=== PATIENT | male | born 1940 | race Caucasian/White ===

== ENCOUNTER 2021-03-17 19:35 | Emergency (ER) | payer MEDICARE ==
[2021-03-17 20:22] LABS: HEMOGLOBIN 16.1 gm/dl (14.0-17.5); RED BLOOD COUNT 4.91 M/UL (4.20-5.50); WHITE BLOOD COUNT 16.2 K/UL (4.5-11.0)
[2021-03-17 20:44] LABS: BUN/CREATININE RATIO 18 (0-10)
[2021-03-18] MEDS ORDERED: OMNICEF 300 MG300 MG PO (01:36)
== END 2021-03-18 01:48 | disposition home or self-care (01) ==
LOC: ER1 19:35
PROVIDERS: Family Medicine
DX: S66.912A Strain of unspecified muscle, fascia and tendon at wrist and hand level, left hand, initial encounter (principal); N13.2 Hydronephrosis with renal and ureteral calculous obstruction; F03.90 Unspecified dementia, unspecified severity, without behavioral disturbance, psychotic disturbance, mood disturbance, and anxiety; D72.829 Elevated white blood cell count, unspecified; Z20.822 Contact with and (suspected) exposure to COVID-19; N39.0 Urinary tract infection, site not specified; R74.9 Abnormal serum enzyme level, unspecified; W06.XXXA Fall from bed, initial encounter; Y92.009 Unspecified place in unspecified non-institutional (private) residence as the place of occurrence of the external cause
CPT/HCPCS: 0240U; 71045; 71250; 73110; 73200; 80053; 81001; 82550; 82553; 83605; 83735; 83874; 83880; 84439; 84443; 84484; 85025; 87040; 87086; 96374; 99285; J0696; J7030

== ENCOUNTER 2021-04-15 16:47 | Emergency (ER) | payer MEDICARE, OTHER ==
[~2021-04-15 16:47] MED LIST: OMNICEF 300 MG300 MG PO
[2021-04-15 18:01] LABS: HEMOGLOBIN 16.3 gm/dl (14.0-17.5); RED BLOOD COUNT 5.04 M/UL (4.20-5.50); WHITE BLOOD COUNT 11.9 K/UL (4.5-11.0)
== END 2021-04-16 18:20 | disposition short-term general hospital (02) ==
LOC: ER1 16:47
PROVIDERS: Physician Assistant Medical
DX: N39.0 Urinary tract infection, site not specified (principal); N13.2 Hydronephrosis with renal and ureteral calculous obstruction; N17.9 Acute kidney failure, unspecified; Z20.822 Contact with and (suspected) exposure to COVID-19
CPT/HCPCS: 70450; 71045; 80053; 81001; 82550; 82553; 83605; 83874; 84484; 85025; 87040; 93005; 96374; 96375; 96376; 99285; J0696; J2270; J2405; Q9967; U0002

== ENCOUNTER 2021-12-01 04:27 | Inpatient (IN) | payer MEDICARE, OTHER ==
[~2021-12-01] VITALS: Ht 203 cm; Wt 64.1 kg
[2021-12-01 05:07] LABS: HEMOGLOBIN 14.3 gm/dl (14.0-17.5); RED BLOOD COUNT 5.26 M/UL (4.20-5.50); WHITE BLOOD COUNT 11.9 K/UL (4.5-11.0)
[2021-12-01 05:44] LABS: BUN/CREATININE RATIO 31 (0-10)
[2021-12-01] MEDS ORDERED: TRAZODONE HCL50 MG GT (09:58)
[2021-12-01] MEDS ORDERED: VITAMIN D350 MC3 GT (09:58)
[2021-12-01] MEDS ORDERED: CALCIUM CIT 311 EAC1 GT (09:58)
[2021-12-01] MEDS ORDERED: METOPROLOL TART25 MG GT (09:59)
[2021-12-01] MEDS ORDERED: DONEPEZIL HCL10 MG GT (10:00)
[2021-12-01] MEDS ORDERED: MULTIPLE VITAM1 EAC1 GT (10:00)
[2021-12-01] MEDS ORDERED: ONDANSETRON HCL4 MG GT (10:00)
[2021-12-01] MEDS ORDERED: FAMOTIDINE20 MG GT (10:01)
[2021-12-01] MEDS ORDERED: LEVOTHYROXINE50 MCG GT (10:01)
[2021-12-01] MEDS ORDERED: ROXICODONE5 MG GT (10:02)
[2021-12-01] MEDS ORDERED: SODIUM CHLORIDE3 ML INH (10:02)
[2021-12-01] MEDS ORDERED: SENNA PLUS 8.61 EACH GT (10:02)
[2021-12-01] MEDS ORDERED: TYLENOL EXTRA500 MG GT (10:03)
--- NOTE | 2021-12-01 23:23 | NUR ---
NOTIFIED DR. SHAFER OF CT REPORT REGARDING AORTIC THROMBUS, ECTATIC AORTA, WELL PATIENT'S PAIN AROUND THE UMBILICUS. NO NEW ORDERS. WILL CLOSELY MONITOR PATIENT.
[2021-12-02 06:17] LABS: HEMOGLOBIN 14.8 gm/dl (14.0-17.5); RED BLOOD COUNT 5.3 M/UL (4.20-5.50); WHITE BLOOD COUNT 10.5 K/UL (4.5-11.0)
[2021-12-03 04:46] LABS: HEMOGLOBIN 13.5 gm/dl (14.0-17.5); RED BLOOD COUNT 4.87 M/UL (4.20-5.50); WHITE BLOOD COUNT 9.1 K/UL (4.5-11.0)
[2021-12-03 09:59] LABS: BORDETELLA PARAPERTUSSIS Not Detected (Not Detectd); BORDETELLA PERTUSSIS Not Detected (Not Detectd); CHLAMYDIA PNEUMONIAE Not Detected (Not Detectd); CORONAVIRUS HKU1 Not Detected (Not Detectd); CORONAVIRUS NL63 Not Detected (Not Detectd); CORONAVIRUS OC43 Not Detected (Not Detectd); CORONOAVIRUS 229E Not Detected (Not Detectd); HUMAN METAPNEUMOVIRUS Not Detected (Not Detectd); HUMAN RHINOVIRUS/ENTEROVIRUS Not Detected (Not Detectd); INFLUENZA A Not Detected (Not Detectd); INFLUENZA B Not Detected (Not Detectd); MYCOPLASMA PNEUMONIAE Not Detected (Not Detectd); PARAINFLUENZA VIRUS 1 Not Detected (Not Detectd); PARAINFLUENZA VIRUS 2 Not Detected (Not Detectd); PARAINFLUENZA VIRUS 3 Not Detected (Not Detectd); PARAINFLUENZA VIRUS 4 Not Detected (Not Detectd); RESPIRATORY SYNCYTIAL VIRUS Not Detected (Not Detectd)
[2021-12-03 13:14] LABS: SARS-CoV-2 DETECTED (Not Detectd)
[2021-12-04 07:13] LABS: BUN/CREATININE RATIO 39 (0-10)
[2021-12-04 07:18] LABS: HEMOGLOBIN 13.6 gm/dl (14.0-17.5); RED BLOOD COUNT 4.99 M/UL (4.20-5.50); WHITE BLOOD COUNT 8.6 K/UL (4.5-11.0)
[2021-12-05 06:46] LABS: RED BLOOD COUNT 4.78 M/UL (4.20-5.50)
[2021-12-05 06:54] LABS: BUN/CREATININE RATIO 47 (0-10)
[2021-12-06 05:46] LABS: HEMOGLOBIN 13.3 gm/dl (14.0-17.5); RED BLOOD COUNT 4.78 M/UL (4.20-5.50)
[2021-12-06 06:09] LABS: BUN/CREATININE RATIO 51 (0-10)
[2021-12-07 05:56] LABS: HEMOGLOBIN 12.6 gm/dl (14.0-17.5); RED BLOOD COUNT 4.59 M/UL (4.20-5.50); WHITE BLOOD COUNT 10.3 K/UL (4.5-11.0)
[2021-12-07 06:22] LABS: BUN/CREATININE RATIO 48 (0-10)
== END 2021-12-07 19:50 | DRG 177 ==
LOC: ER1 04:27 → M/S 08:38 → CDU 08:38 → M/S 08:38
PROVIDERS: Physician Assistant; Physician Assistant Medical; Student in an Organized Health Care Education/Training Program; ADMIT Internal Medicine
PROC: 3E03329 Introduction of Other Anti-infective into Peripheral Vein, Percutaneous Approach (ICD-10-PCS; 2021-12-01)
PROC: 3E0H76Z Introduction of Nutritional Substance into Lower GI, Via Natural or Artificial Opening (ICD-10-PCS; 2021-12-02)
PROC: B24BZZZ Ultrasonography of Heart with Aorta (ICD-10-PCS; 2021-12-02)
PROC: XW033E5 Introduction of Remdesivir Anti-infective into Peripheral Vein, Percutaneous Approach, New Technology Group 5 (ICD-10-PCS; principal; 2021-12-03)
PROC: 3E0333Z Introduction of Anti-inflammatory into Peripheral Vein, Percutaneous Approach (ICD-10-PCS; 2021-12-03)
PROC: 8E0ZXY6 Isolation (ICD-10-PCS; 2021-12-07)
DX: U07.1 COVID-19 (principal); J96.01 Acute respiratory failure with hypoxia; I50.33 Acute on chronic diastolic (congestive) heart failure; J15.9 Unspecified bacterial pneumonia; G93.41 Metabolic encephalopathy; E44.0 Moderate protein-calorie malnutrition; Z68.1 Body mass index [BMI] 19.9 or less, adult; E87.0 Hyperosmolality and hypernatremia; I13.0 Hypertensive heart and chronic kidney disease with heart failure and stage 1 through stage 4 chronic kidney disease, or unspecified chronic kidney disease; N18.30 Chronic kidney disease, stage 3 unspecified; I49.3 Ventricular premature depolarization; I49.5 Sick sinus syndrome; I35.8 Other nonrheumatic aortic valve disorders; N26.1 Atrophy of kidney (terminal); D64.9 Anemia, unspecified; R13.10 Dysphagia, unspecified; R29.6 Repeated falls; M81.0 Age-related osteoporosis without current pathological fracture; F32.A Depression, unspecified; K21.9 Gastro-esophageal reflux disease without esophagitis; E03.9 Hypothyroidism, unspecified; F03.90 Unspecified dementia, unspecified severity, without behavioral disturbance, psychotic disturbance, mood disturbance, and anxiety; E88.09 Other disorders of plasma-protein metabolism, not elsewhere classified; R62.7 Adult failure to thrive; Z85.118 Personal history of other malignant neoplasm of bronchus and lung; Z93.1 Gastrostomy status; Z95.0 Presence of cardiac pacemaker; Z87.442 Personal history of urinary calculi; Z88.1 Allergy status to other antibiotic agents
CPT/HCPCS: ECHO; 36415; 71045; 80048; 80053; 81001; 82550; 82553; 83605; 83735; 83880; 84439; 84443; 84484; 85025; 85027; 85379; 87040; 87086; 87633; 92526; 92610; 93005; 93306; 94640; 94664; 94760; 96372; 96374; 96375; 96376; 99285; G0378; J0248; J0696; J1100; J1650; J1940; J7030; Q9967; U0002

== ENCOUNTER → 2022-01-06 | Outpatient (CLI) | payer MEDICARE, OTHER ==
[~2022-01-06] MED LIST changes: +CALCIUM CIT 311 EAC1 GT; +DONEPEZIL HCL10 MG GT; +FAMOTIDINE20 MG GT; +LEVOTHYROXINE50 MCG GT; +METOPROLOL TART25 MG GT; +MULTIPLE VITAM1 EAC1 GT; +ONDANSETRON HCL4 MG GT; +ROXICODONE5 MG GT; +SENNA PLUS 8.61 EACH GT; +SODIUM CHLORIDE3 ML INH; +TRAZODONE HCL50 MG GT; +TYLENOL EXTRA500 MG GT; +VITAMIN D350 MC3 GT
== END ==
LOC: LBRF 03:18
DX: R82.998 Other abnormal findings in urine (principal); R68.89 Other general symptoms and signs; N20.0 Calculus of kidney
CPT/HCPCS: 81001; 87086

== ENCOUNTER 2022-02-08 21:38 | Emergency (ER) | payer MEDICARE, OTHER ==
[2022-02-08 22:01] LABS: HEMOGLOBIN 15.2 gm/dl (14.0-17.5); RED BLOOD COUNT 5.11 M/UL (4.20-5.50)
== END 2022-02-09 03:05 | disposition short-term general hospital (02) ==
LOC: ER1 21:38
PROVIDERS: Family Medicine
DX: K92.2 Gastrointestinal hemorrhage, unspecified (principal); K21.9 Gastro-esophageal reflux disease without esophagitis; Z20.822 Contact with and (suspected) exposure to COVID-19
CPT/HCPCS: 51702; 71045; 80053; 81001; 83605; 83690; 85025; 85610; 87040; 87086; 93005; 94760; 96374; 96375; 99285; C9113; J0696; Q9967; U0002

== ENCOUNTER 2022-02-18 08:47 | Inpatient (IN) | payer MEDICARE, OTHER ==
[~2022-02-18] VITALS: Ht 182.9 cm; Wt 67.4 kg
[~2022-02-18 08:47] MED LIST changes: +HYDROCODON-ACE1 EAC4 GT; +LASIX 40 MG TAB40 MG GT; -METOPROLOL TART25 MG GT; +POTASSIUM CHLO20 ME2 GT; +STOOL SOFTENER100 MG GT; -TRAZODONE HCL50 MG GT; -VITAMIN D350 MC3 GT
[2022-02-18 09:42] LABS: HEMOGLOBIN 12.8 gm/dl (14.0-17.5); RED BLOOD COUNT 4.4 M/UL (4.20-5.50); WHITE BLOOD COUNT 11.4 K/UL (4.5-11.0)
[2022-02-18 09:53] LABS: BUN/CREATININE RATIO 28 (0-10)
[2022-02-18] MEDS ORDERED: TRAZODONE HCL50 MG GT (09:58)
[2022-02-18] MEDS ORDERED: VITAMIN D350 MCG GT (09:58)
[2022-02-18] MEDS ORDERED: METOPROLOL TART25 MG GT (09:59)
[2022-02-18] MEDS ORDERED: IPRAT-ALBUT 0.5-3 ML INH (15:48)
[2022-02-18] MEDS ORDERED: OMNICEF 300 MG300 MG GT (15:49)
[2022-02-18] MEDS ORDERED: LACTULOSE10 GM/151 GT (15:51)
[2022-02-18] MEDS ORDERED: ZINC OXIDE60 GM TOP (19:06)
[2022-02-19 02:29] LABS: HEMOGLOBIN 10.9 gm/dl (14.0-17.5); WHITE BLOOD COUNT 10.9 K/UL (4.5-11.0)
[2022-02-19 02:35] LABS: RED BLOOD COUNT 3.8 M/UL (4.20-5.50)
[2022-02-19 03:02] LABS: BUN/CREATININE RATIO 29 (0-10)
[2022-02-20 04:22] LABS: HEMOGLOBIN 10.7 gm/dl (14.0-17.5); RED BLOOD COUNT 3.74 M/UL (4.20-5.50); WHITE BLOOD COUNT 9.3 K/UL (4.5-11.0)
[2022-02-20 04:52] LABS: BUN/CREATININE RATIO 25 (0-10)
[2022-02-21 03:01] LABS: RED BLOOD COUNT 3.78 M/UL (4.20-5.50); WHITE BLOOD COUNT 11.6 K/UL (4.5-11.0)
[2022-02-21 03:36] LABS: BUN/CREATININE RATIO 27 (0-10)
[2022-02-22 04:37] LABS: BUN/CREATININE RATIO 33 (0-10)
[2022-02-23] MEDS ORDERED: MEROPENEM1 GM IV (09:01)
[2022-02-23] MEDS ORDERED: LASIX 40 MG TAB40 MG PO (09:07)
[2022-02-23] MEDS ORDERED: PULMICORT0.5 MG/2 M INH (09:07)
[2022-02-23] MEDS ORDERED: K-TAB ER20 MEQ PO (09:07)
[2022-02-23] MEDS ORDERED: MIRALAX17 GM PO (11:55)
[2022-02-24 10:02] LABS: HEMOGLOBIN 10.8 gm/dl (14.0-17.5); RED BLOOD COUNT 3.76 M/UL (4.20-5.50); WHITE BLOOD COUNT 11.6 K/UL (4.5-11.0)
[2022-02-24 10:30] LABS: BUN/CREATININE RATIO 32 (0-10)
[2022-02-24] MEDS ORDERED: LACTULOSE20 GM/30 M PO (11:56)
--- NOTE | 2022-02-24 14:25 | NUR ---
report called to Larry at [facility]. EMS already contacted.
--- NOTE | 2022-02-24 17:15 | NUR ---
EMS AT [facility]. REPORT ALREADY CALLED TO ALVARO RAMACHANDRAN AND FAMILY IS AWARE THAT HE IS BEING DISCHARGED.
[2022-02-25] MEDS ORDERED: FUROSEMIDE40 MG GT (17:52)
[2022-02-25] MEDS ORDERED: LACTULOSE10 GM/15 M GT (17:55)
== END 2022-02-24 17:30 | DRG 193 ==
LOC: ER1 08:47 → MED SURG 4 10:19 → CDU 10:19 → PROG CARE 17:46 → MED SURG 4 02-20 08:00
PROVIDERS: Emergency Medicine; Internal Medicine; Physician Assistant; ADMIT Internal Medicine
DX: J18.9 Pneumonia, unspecified organism (principal); J96.21 Acute and chronic respiratory failure with hypoxia; I50.32 Chronic diastolic (congestive) heart failure; E44.0 Moderate protein-calorie malnutrition; J98.11 Atelectasis; F03.90 Unspecified dementia, unspecified severity, without behavioral disturbance, psychotic disturbance, mood disturbance, and anxiety; Z20.822 Contact with and (suspected) exposure to COVID-19; I11.0 Hypertensive heart disease with heart failure; I71.4 Abdominal aortic aneurysm, without rupture; F17.210 Nicotine dependence, cigarettes, uncomplicated; K59.00 Constipation, unspecified; E03.9 Hypothyroidism, unspecified; R13.10 Dysphagia, unspecified; Y95 Nosocomial condition; J43.9 Emphysema, unspecified; I49.5 Sick sinus syndrome; Z93.1 Gastrostomy status; Z79.82 Long term (current) use of aspirin; Z79.899 Other long term (current) drug therapy; Z85.118 Personal history of other malignant neoplasm of bronchus and lung; Z95.0 Presence of cardiac pacemaker; Z87.442 Personal history of urinary calculi; Z98.890 Other specified postprocedural states; Z86.16 Personal history of COVID-19; Z68.20 Body mass index [BMI] 20.0-20.9, adult
CPT/HCPCS: 0240U; 36415; 36600; 71045; 80048; 80053; 80202; 81001; 82550; 82553; 82803; 83605; 83735; 83880; 84484; 85025; 85027; 85379; 87040; 93005; 93970; 94640; 94664; 94760; 96374; 96375; 96376; 99285; J0692; J1650; J2185; J3370; J7070; Q9967

== ENCOUNTER 2022-02-25 11:48 | Inpatient (IN) | payer MEDICARE, OTHER ==
[~2022-02-25] VITALS: Ht 182.9 cm; Wt 66.7 kg
[~2022-02-25 11:48] MED LIST changes: +IPRAT-ALBUT 0.5-3 ML INH; +K-TAB ER20 MEQ PO; +LACTULOSE10 GM/151 GT; +LACTULOSE20 GM/30 M PO; +LASIX 40 MG TAB40 MG PO; +MEROPENEM1 GM IV; +METOPROLOL TART25 MG GT; +MIRALAX17 GM PO; +OMNICEF 300 MG300 MG GT; +PULMICORT0.5 MG/2 M INH; +TRAZODONE HCL50 MG GT; +VITAMIN D350 MCG GT; +ZINC OXIDE60 GM TOP
[2022-02-25 14:03] LABS: WHITE BLOOD COUNT 12.5 K/UL (4.5-11.0)
[2022-02-25 14:04] LABS: HEMOGLOBIN 13.5 gm/dl (14.0-17.5); RED BLOOD COUNT 4.65 M/UL (4.20-5.50)
[2022-02-25 14:50] LABS: BUN/CREATININE RATIO 35 (0-10)
[2022-02-25] MEDS ORDERED: FUROSEMIDE40 MG GT (17:52)
[2022-02-25] MEDS ORDERED: LACTULOSE10 GM/15 M GT (17:55)
[2022-02-26 03:04] LABS: BUN/CREATININE RATIO 34 (0-10)
[2022-02-26 03:05] LABS: WHITE BLOOD COUNT 11.9 K/UL (4.5-11.0)
[2022-02-26 03:44] LABS: HEMOGLOBIN 10.9 gm/dl (14.0-17.5); RED BLOOD COUNT 3.84 M/UL (4.20-5.50)
[2022-02-28 04:16] LABS: HEMOGLOBIN 10.8 gm/dl (14.0-17.5); RED BLOOD COUNT 3.79 M/UL (4.20-5.50); WHITE BLOOD COUNT 9.5 K/UL (4.5-11.0)
[2022-02-28 04:28] LABS: BUN/CREATININE RATIO 35 (0-10)
[2022-02-28] MEDS ORDERED: POLYETHYLENE GL17 GM GT (10:33)
[2022-02-28] MEDS ORDERED: BISACODYL10 MG PR (10:49)
== END 2022-02-28 17:30 | DRG 389 ==
LOC: ER1 11:48 → MED SURG 4 17:00 → CDU 17:00 → MED SURG 4 17:00
PROVIDERS: Physician Assistant; ADMIT Internal Medicine Infectious Disease
DX: K56.41 Fecal impaction (principal); I50.32 Chronic diastolic (congestive) heart failure; J98.11 Atelectasis; Z20.822 Contact with and (suspected) exposure to COVID-19; K62.89 Other specified diseases of anus and rectum; Z66 Do not resuscitate; E86.0 Dehydration; I49.5 Sick sinus syndrome; R13.10 Dysphagia, unspecified; I11.0 Hypertensive heart disease with heart failure; R00.0 Tachycardia, unspecified; F03.90 Unspecified dementia, unspecified severity, without behavioral disturbance, psychotic disturbance, mood disturbance, and anxiety; E03.9 Hypothyroidism, unspecified; Z90.2 Acquired absence of lung [part of]; Z87.01 Personal history of pneumonia (recurrent); Z95.0 Presence of cardiac pacemaker; Z87.442 Personal history of urinary calculi; Z93.1 Gastrostomy status; Z87.891 Personal history of nicotine dependence; Z88.1 Allergy status to other antibiotic agents; Z74.01 Bed confinement status
CPT/HCPCS: 36415; 71045; 80053; 82550; 82553; 83605; 83690; 83735; 84484; 85025; 87040; 93005; 94640; 94760; 96374; 96375; 99285; C9113; J2543; J3480; Q9967; U0002

== ENCOUNTER 2022-03-10 03:54 | Inpatient (IN) | payer MEDICARE, OTHER ==
[~2022-03-10] VITALS: Ht 172.7 cm; Wt 64.0 kg
[~2022-03-10 03:54] MED LIST changes: +BISACODYL10 MG PR; +FUROSEMIDE40 MG GT; +LACTULOSE10 GM/15 M GT; +POLYETHYLENE GL17 GM GT
[2022-03-10 05:04] LABS: RED BLOOD COUNT 4.51 M/UL (4.20-5.50); WHITE BLOOD COUNT 13.1 K/UL (4.5-11.0)
[2022-03-10 05:45] LABS: BUN/CREATININE RATIO 35 (0-10)
[2022-03-10] MEDS ORDERED: CEFDINIR300 MG PO (11:18)
[2022-03-10] MEDS ORDERED: POTASSIUM CHLO20 ME2 PO (11:19)
[2022-03-10] MEDS ORDERED: SENNA8.6 MG PO (11:19)
[2022-03-10] MEDS ORDERED: FUROSEMIDE40 MG PO (11:19)
[2022-03-10] MEDS ORDERED: D3 DOTS50 MCG PO (11:20)
[2022-03-11 06:14] LABS: RED BLOOD COUNT 4.15 M/UL (4.20-5.50); WHITE BLOOD COUNT 11.9 K/UL (4.5-11.0)
[2022-03-11 06:31] LABS: BUN/CREATININE RATIO 34 (0-10)
[2022-03-12 06:43] LABS: HEMOGLOBIN 10.8 gm/dl (14.0-17.5); RED BLOOD COUNT 3.8 M/UL (4.20-5.50); WHITE BLOOD COUNT 9.8 K/UL (4.5-11.0)
[2022-03-12 07:07] LABS: BUN/CREATININE RATIO 31 (0-10)
[2022-03-13 04:17] LABS: HEMOGLOBIN 10.4 gm/dl (14.0-17.5); RED BLOOD COUNT 3.64 M/UL (4.20-5.50); WHITE BLOOD COUNT 8.5 K/UL (4.5-11.0)
[2022-03-13 04:30] LABS: BUN/CREATININE RATIO 28 (0-10)
[2022-03-14 05:16] LABS: HEMOGLOBIN 11.1 gm/dl (14.0-17.5); RED BLOOD COUNT 3.86 M/UL (4.20-5.50); WHITE BLOOD COUNT 7.7 K/UL (4.5-11.0)
[2022-03-14 06:35] LABS: BUN/CREATININE RATIO 27 (0-10)
[2022-03-15 06:47] LABS: HEMOGLOBIN 11.4 gm/dl (14.0-17.5); RED BLOOD COUNT 4.02 M/UL (4.20-5.50); WHITE BLOOD COUNT 7.6 K/UL (4.5-11.0)
[2022-03-15 07:57] LABS: BUN/CREATININE RATIO 29 (0-10)
[2022-03-15] MEDS ORDERED: TRAZODONE HCL50 MG GT (11:43)
[2022-03-15] MEDS ORDERED: MEROPENEM1 GM IV (11:43)
[2022-03-15] MEDS ORDERED: HYDROCODON-ACE1 EAC4 GT (11:43)
[2022-03-15] MEDS ORDERED: INVANZ 1 GM VIAL1 GM IV (11:48)
--- NOTE | 2022-03-15 12:44 | NUR ---
Called report to Carito Tan at 1230. Gave report to Em.
--- NOTE | 2022-03-15 13:40 | NUR ---
PATIENT TO RECIEVE FIRST DOSE OF ETERPANEM AT [facility] ACCORDING TO ELYSIA HERNANDEZ AT [facility] AND KAMI IN THE PHARMACY AT [facility]. DOUBLE VARIFIED AND CHARTED BY TWO RN'S. WILL MONITOR.
--- NOTE | 2022-03-15 13:42 | NUR ---
PER PHARMACIST KAMI: SPOKE WITH ELYSIA HERNANDEZ AT [facility]. ELYSIA HERNANDEZ STATED [facility] WILL GIVE FIRT DOSE OF INVANZ. ZHEN CASTANEDA R.N.
== END 2022-03-15 16:20 | DRG 690 ==
LOC: ER1 03:54 → MED SURG 4 08:29 → CDU 08:29 → MED SURG 4 08:29
PROVIDERS: Physician Assistant; Student in an Organized Health Care Education/Training Program; ADMIT Internal Medicine
DX: N30.00 Acute cystitis without hematuria (principal); Z16.12 Extended spectrum beta lactamase (ESBL) resistance; Z20.822 Contact with and (suspected) exposure to COVID-19; J96.11 Chronic respiratory failure with hypoxia; I50.32 Chronic diastolic (congestive) heart failure; E87.3 Alkalosis; E46 Unspecified protein-calorie malnutrition; F03.90 Unspecified dementia, unspecified severity, without behavioral disturbance, psychotic disturbance, mood disturbance, and anxiety; I11.0 Hypertensive heart disease with heart failure; I49.5 Sick sinus syndrome; B96.20 Unspecified Escherichia coli [E. coli] as the cause of diseases classified elsewhere; K56.41 Fecal impaction; R13.10 Dysphagia, unspecified; Z95.0 Presence of cardiac pacemaker; Z85.118 Personal history of other malignant neoplasm of bronchus and lung; Z93.1 Gastrostomy status; Z87.891 Personal history of nicotine dependence; Z68.21 Body mass index [BMI] 21.0-21.9, adult
CPT/HCPCS: 0240U; 36415; 70450; 71045; 76705; 80048; 80053; 81001; 82550; 82553; 83605; 83735; 83880; 84484; 85025; 85027; 87040; 87077; 87086; 87186; 93005; 94640; 94664; 94760; 99285; A6212; J0696; J1335; J1650; J2185; J7030; Q9967

== ENCOUNTER 2022-04-25 00:02 | Inpatient (IN) | payer MEDICARE, OTHER ==
[~2022-04-25] VITALS: Ht 188 cm; Wt 68.9 kg
[~2022-04-25 00:02] MED LIST changes: +CEFDINIR300 MG PO; +D3 DOTS50 MCG GT; +FUROSEMIDE40 MG PO; +INVANZ 1 GM VIAL1 GM IV; +POTASSIUM CHLO20 ME2 PO; +SENNA8.6 MG PO
[2022-04-25 01:12] LABS: HEMOGLOBIN 11.7 gm/dl (14.0-17.5); RED BLOOD COUNT 4.13 M/UL (4.20-5.50); WHITE BLOOD COUNT 11.3 K/UL (4.5-11.0)
[2022-04-25 02:04] LABS: BUN/CREATININE RATIO 36 (0-10)
[2022-04-25] MEDS ORDERED: LASIX 40 MG TAB40 MG PO (05:42)
[2022-04-25] MEDS ORDERED: POTASSIUM CHLO20 ME1 PO (05:43)
[2022-04-25] MEDS ORDERED: HYDROCODON-ACE1 EAC4 PO (08:53)
[2022-04-26 03:03] LABS: HEMOGLOBIN 11.4 gm/dl (14.0-17.5); RED BLOOD COUNT 4.07 M/UL (4.20-5.50); WHITE BLOOD COUNT 9.6 K/UL (4.5-11.0)
[2022-04-26 03:52] LABS: BUN/CREATININE RATIO 42 (0-10)
--- NOTE | 2022-04-26 23:08 | NUR ---
PT TRANSFERED TO [place] [id number]. PT STABLE, CLEAN, AND DRY. REPORT GIVEN TO GISELA MAGANA. RECIEVING NURSE IN ROOM TO RECIEVE PT HANDOFF GIVEN.
[2022-04-27 07:35] LABS: BUN/CREATININE RATIO 37 (0-10)
[2022-04-27] MEDS ORDERED: ASPIRIN EC81 MG PO (11:09)
[2022-04-27] MEDS ORDERED: ATORVASTATIN CA10 MG PO (11:09)
--- NOTE | 2022-04-27 13:44 | NUR ---
REPORT CALLED TO LAUREN AT [facility]. AWAITING AMBULANCE TO TRANSPORT PATIENT TO [facility].
== END 2022-04-27 16:54 | DRG 281 ==
LOC: ER1 00:02 → MED SURG 4 03:33 → CDU 03:33 → PROG CARE 03:33 → MED SURG 4 04-26 22:57
PROVIDERS: Internal Medicine Infectious Disease; Student in an Organized Health Care Education/Training Program; ADMIT Internal Medicine
PROC: B24BZZZ Ultrasonography of Heart with Aorta (ICD-10-PCS; principal; 2022-04-25)
DX: I21.4 Non-ST elevation (NSTEMI) myocardial infarction (principal); I50.32 Chronic diastolic (congestive) heart failure; J96.11 Chronic respiratory failure with hypoxia; F03.90 Unspecified dementia, unspecified severity, without behavioral disturbance, psychotic disturbance, mood disturbance, and anxiety; R53.81 Other malaise; E03.9 Hypothyroidism, unspecified; I95.9 Hypotension, unspecified; I11.0 Hypertensive heart disease with heart failure; I49.5 Sick sinus syndrome; K56.41 Fecal impaction; E86.0 Dehydration; Z95.0 Presence of cardiac pacemaker; Z85.118 Personal history of other malignant neoplasm of bronchus and lung; Z90.89 Acquired absence of other organs; Z82.49 Family history of ischemic heart disease and other diseases of the circulatory system; Z86.16 Personal history of COVID-19; Z93.1 Gastrostomy status; Z88.1 Allergy status to other antibiotic agents; Z79.82 Long term (current) use of aspirin; Z79.899 Other long term (current) drug therapy
CPT/HCPCS: ECHO; 36415; 71045; 80048; 80053; 80061; 82533; 82550; 82553; 83605; 83735; 84439; 84443; 84484; 85025; 85610; 87040; 92610; 93005; 93306; 94640; 94664; 94760; 97110-GP-CQ; 97162; 99285

== ENCOUNTER 2022-05-03 04:07 | Emergency (ER) | payer MEDICARE, OTHER ==
[~2022-05-03 04:07] MED LIST changes: +ASPIRIN EC81 MG PO; +ATORVASTATIN CA10 MG PO; +HYDROCODON-ACE1 EAC4 PO; +POTASSIUM CHLO20 ME1 PO
[2022-05-03 05:10] LABS: HEMOGLOBIN 12.4 gm/dl (14.0-17.5); RED BLOOD COUNT 4.43 M/UL (4.20-5.50); WHITE BLOOD COUNT 10.7 K/UL (4.5-11.0)
[2022-05-03 05:31] LABS: BUN/CREATININE RATIO 42 (0-10)
== END 2022-05-03 09:19 | disposition home or self-care (01) ==
LOC: ER1 04:07
PROVIDERS: Family Medicine
DX: J96.11 Chronic respiratory failure with hypoxia (principal); F03.90 Unspecified dementia, unspecified severity, without behavioral disturbance, psychotic disturbance, mood disturbance, and anxiety; N18.9 Chronic kidney disease, unspecified; Z95.0 Presence of cardiac pacemaker; Z79.82 Long term (current) use of aspirin; Z79.899 Other long term (current) drug therapy; Z93.1 Gastrostomy status; Z99.81 Dependence on supplemental oxygen; Z90.2 Acquired absence of lung [part of]
CPT/HCPCS: 71045; 80053; 82550; 82553; 84484; 85025; 93005; 96374; 99285

== ENCOUNTER 2022-05-16 23:49 | Emergency (ER) | payer MEDICARE, OTHER ==
[2022-05-17 00:33] LABS: HEMOGLOBIN 12.9 gm/dl (14.0-17.5); RED BLOOD COUNT 4.65 M/UL (4.20-5.50); WHITE BLOOD COUNT 12.9 K/UL (4.5-11.0)
== END 2022-05-17 04:12 | disposition expired ==
LOC: ER1 23:49
PROVIDERS: Emergency Medicine
DX: I46.9 Cardiac arrest, cause unspecified (principal)
CPT/HCPCS: 71045; 80053; 81001; 83605; 83735; 84100; 85025; 87040; 87086; 96374; 96375; 99285; J2543; J3370; J7030